=== PATIENT | male | born 1975 | race Caucasian/White ===

== ENCOUNTER → 2019-08-04 | Outpatient (CLI) | payer BC ==
--- NOTE | 2019-08-05 05:18 | CT ---
EXAMINATION TYPE: CT urogram wo/w con DATE OF EXAM: 08/04/2019 COMPARISON: None HISTORY: 43-year-old male Hematuria TECHNIQUE: Contiguous axial scanning of the abdomen and pelvis performed without and with IV Contrast , patient injected with 100 mL of Isovue 300. Delayed images through the kidneys and bladder were obt ained. Coronal/sagittal reconstructions performed. 3-D reconstructions generated on a dedicated [employer] workstation. CT DLP: 1878.8 mGycm Automated exposure control for dose reduction was used. FINDINGS: Heart normal size without pericardial effusion. Prominent dependent atelectasis posterior right base along with subsegmental bandlike atelectasis. No pleural effusion. Tiny calcified granuloma posterome dial right base. Small hiatal hernia. No focal liver lesion or biliary ductal dilatation. Portal venous system is patent. Gallbladder, adrenal glands, spleen, and pancreas appear within normal limits. Punctate 2 to 3 mm bilateral renal calculi are present, approximately 7 on the right and 2 on the lef t. No hydronephrosis. Symmetric uptake and excretion of contrast from both kidneys. Exophytic 1.8 cm hypodense lesion upper pole left kidney versus noncontrast density of 6 Hounsfield u nits and postcontrast density of 13 Hounsfield units which is within a standard deviation of variabil ity. A benign cyst is suggested. A second 1.8 cm cortical cyst shows fluid attenuation posterior mid to lower pole left kidney. Tiny subcentimeter hypodensity posterior lower pole right kidney too small fragment CT characterizati on, likely tiny cortical cyst. No suspicious enhancing renal lesions. No abnormal filling defects seen within the renal collecting systems. The entire ureters are seen opacified. No suspicious filling defect or contour abnormality is seen. T here is some minimal narrowing and tortuosity on the right at the level of the iliac vessel crossing. No dilated small bowel, free fluid, or free air. Some scattered prominent but nonenlarged periaortic lymph nodes. Mesenteric lymph node measures up to 6 mm, axial image 40, probably reactive/post inflam matory. Scattered mild stool. Mildly redundant proximal sigmoid colon. No pericolonic inflammatory change. No suspicious filling defect along the posterior opacified one third of the bladder wall. Prostate gland mildly enlarged at 4.6 cm wide. No abnormal fluid collection in the pelvis or pelvic l ymphadenopathy seen. Bones: Mild facet arthropathy and degenerative disc disease. There is diffuse disc bulge with superim posed right paracentral disc herniation at L3-L4 causing at least mild spinal canal stenosis and prob ably effacing the traversing right L4 nerve root. IMPRESSION: 1. BILATERAL PUNCTATE 2 TO 3 MM NEPHROLITHIASIS. NO HYDRONEPHROSIS. 2. NO SUSPICIOUS ENHANCING RENAL LESION. A FEW RENAL CORTICAL CYSTS ARE PRESENT MEASURING UP TO 1.8 C M. 3. NO SUSPICIOUS FILLING DEFECT ALONG THE URETERS OR COLLECTING SYSTEMS OR WITHIN THE POSTERIOR THIRD OPACIFIED BLADDER. SOME FOCAL TORTUOSITY AND NARROWING ALONG THE DISTAL THIRD RIGHT URETER CORRESPON DS TO THE CROSSING OVER THE ILIAC VESSELS. 4. MILD PROSTATOMEGALY (4.6 CM WIDE). 5. RIGHT PARACENTRAL DISC HERNIATION AT L3-L4 WITH AT LEAST MILD SPINAL CANAL STENOSIS AND POSSIBLE A BUTMENT OF THE TRAVERSING RIGHT L4 NERVE ROOT. QUERY ANY RADICULOPATHY.
== END | disposition home or self-care (01) ==
LOC: RADCTMAIN 16:50
PROVIDERS: ATTEND Urology
DX: N20.0 Calculus of kidney (principal); N28.1 Cyst of kidney, acquired; N13.8 Other obstructive and reflux uropathy; N28.9 Disorder of kidney and ureter, unspecified; N40.0 Benign prostatic hyperplasia without lower urinary tract symptoms
CPT/HCPCS: 74178; 74400; Q9967

== ENCOUNTER 2021-02-25 03:40 | Emergency (ER) | payer BC, OTHER ==
[2021-02-25 03:51] VITALS: RESP 18
--- NOTE | 2021-02-25 03:52 | ED ---
Syncope HPI - General Chief Complaint: Syncope Stated Complaint: Near syncope Time Seen by Provider: 02/25/21 03:42 Source: patient, family Mode of arrival: wheelchair Limitations: no limitations - Related Data Allergies Allergy/AdvReac Type Severity Reaction Status Date / Time No Known Allergies Allergy Verified 02/25/21 03:51 Review of Systems ROS Statement: Those systems with pertinent positive or pertinent negative responses have been documented in the HPI. ROS Other: All systems not noted in ROS Statement are negative. Past Medical History Past Medical History: Hypertension Additional Past Medical History / Comment(s): kidney stones, migraines History of Any Multi-Drug Resistant Organisms: None Reported Past Surgical History: No Surgical Hx Reported Past Psychological History: ADD/ADHD Smoking Status: Current every day smoker Past Alcohol Use History: Occasional Past Drug Use History: Marijuana General Exam Limitations: no limitations Course Vital Signs 02/25/21 02/25/21 03:44 05:45 Temperature 97.5 F L Pulse Rate 87 85 Respiratory 18 18 Rate Blood Pressure 118/76 123/77 O2 Sat by Pulse 99 98 Oximetry - Reevaluation(s) Reevaluation #1: 02/25/21 05:12 Medical record is reviewed. Reevaluation #2: 02/25/21 05:12 Patient has no chest pain with either for second or third EKG EKG Findings - EKG Comments: EKG Findings:: EKG shows sinus rhythm 88 IL 160 QRS 88 QTc 438. Repeat. EKG shows normal sinus rhythm 83 IL 164 QRS 86 QTc 434 does appear to be some early repolarization,. Repeat. EKG shows sinus rhythm 83 IL 168 QRS 88 QTc 446 Medical Decision Making - Lab Data Result diagrams: 02/25/21 04:21 02/25/21 04:21 Lab Results 02/25/21 02/25/21 02/25/21 Range/Units 04:21 04:21 04:21 WBC 15.5 H (3.8-10.6) k/uL RBC 5.32 (4.30-5.90) m/uL Hgb 15.7 (13.0-17.5) gm/dL Hct 46.3 (39.0-53.0) % MCV 87.1 (80.0-100.0) fL MCH 29.5 (25.0-35.0) pg MCHC 33.8 (31.0-37.0) g/dL RDW 13.0 (11.5-15.5) % Plt Count 205 (150-450) k/uL MPV 8.5 Neutrophils % 80 % Lymphocytes % 9 % Monocytes % 7 % Eosinophils % 1 % Basophils % 0 % Neutrophils # 12.4 H (1.3-7.7) k/uL Lymphocytes # 1.4 (1.0-4.8) k/uL Monocytes # 1.1 H (0-1.0) k/uL Eosinophils # 0.2 (0-0.7) k/uL Basophils # 0.1 (0-0.2) k/uL PT 10.5 (9.0-12.0) sec INR 1.0 (<1.2) APTT 22.8 (22.0-30.0) sec D-Dimer 0.80 H (<0.60) mg/L FEU Sodium 133 L (137-145) mmol/L Potassium 4.1 (3.5-5.1) mmol/L Chloride 103 (98-107) mmol/L Carbon Dioxide 21 L (22-30) mmol/L Anion Gap 9 mmol/L BUN 15 (9-20) mg/dL Creatinine 0.87 (0.66-1.25) mg/dL Est GFR (CKD-EPI)AfAm >90 (>60 ml/min/1.73 sqM) Est GFR (CKD-EPI)NonAf >90 (>60 ml/min/1.73 sqM) Glucose 117 H (74-99) mg/dL Calcium 9.2 (8.4-10.2) mg/dL Phosphorus 3.9 (2.5-4.5) mg/dL Magnesium 2.1 (1.6-2.3) mg/dL Total Bilirubin 0.6 (0.2-1.3) mg/dL AST 43 (17-59) U/L ALT 39 (4-49) U/L Alkaline Phosphatase 83 (38-126) U/L Creatine Kinase 934 H (55-170) U/L CK-MB (CK-2) (0.0-2.4) ng/mL Troponin I (0.000-0.034) ng/mL NT-Pro-B Natriuret Pep pg/mL Total Protein 6.9 (6.3-8.2) g/dL Albumin 4.2 (3.5-5.0) g/dL Lipase 77 (23-300) U/L Serum Alcohol <10 mg/dL 02/25/21 02/25/21 Range/Units 04:21 04:21 WBC (3.8-10.6) k/uL RBC (4.30-5.90) m/uL Hgb (13.0-17.5) gm/dL Hct (39.0-53.0) % MCV (80.0-100.0) fL MCH (25.0-35.0) pg MCHC (31.0-37.0) g/dL RDW (11.5-15.5) % Plt Count (150-450) k/uL MPV Neutrophils % % Lymphocytes % % Monocytes % % Eosinophils % % Basophils % % Neutrophils # (1.3-7.7) k/uL Lymphocytes # (1.0-4.8) k/uL Monocytes # (0-1.0) k/uL Eosinophils # (0-0.7) k/uL Basophils # (0-0.2) k/uL PT (9.0-12.0) sec INR (<1.2) APTT (22.0-30.0) sec D-Dimer (<0.60) mg/L FEU Sodium (137-145) mmol/L Potassium (3.5-5.1) mmol/L Chloride (98-107) mmol/L Carbon Dioxide (22-30) mmol/L Anion Gap mmol/L BUN (9-20) mg/dL Creatinine (0.66-1.25) mg/dL Est GFR (CKD-EPI)AfAm (>60 ml/min/1.73 sqM) Est GFR (CKD-EPI)NonAf (>60 ml/min/1.73 sqM) Glucose (74-99) mg/dL Calcium (8.4-10.2) mg/dL Phosphorus (2.5-4.5) mg/dL Magnesium (1.6-2.3) mg/dL Total Bilirubin (0.2-1.3) mg/dL AST (17-59) U/L ALT (4-49) U/L Alkaline Phosphatase (38-126) U/L Creatine Kinase (55-170) U/L CK-MB (CK-2) 3.7 H (0.0-2.4) ng/mL Troponin I <0.012 (0.000-0.034) ng/mL NT-Pro-B Natriuret Pep 48 pg/mL Total Protein (6.3-8.2) g/dL Albumin (3.5-5.0) g/dL Lipase (23-300) U/L Serum Alcohol mg/dL Disposition Clinical Impression: Syncope Disposition: HOME SELF-CARE Condition: Good Instructions (If sedation given, give patient instructions): Syncope (ED) Is patient prescribed a controlled substance at d/c from ED?: No Referrals: Deidre Kwong DO [Primary Care Provider] - 1-2 days
[2021-02-25] MEDS ORDERED: SODIUM CHLORIDE 0.9% 1,000 ML IV STA ×2 (04:03→05:14)
[2021-02-25 04:41] LABS: Basophils # (A) 0.1 k/uL (0-0.2); Basophils % (A) 0 %; Eosinophils # (A) 0.2 k/uL (0-0.7); Eosinophils % (A) 1 %; HCT 46.3 % (39.0-53.0); HGB 15.7 gm/dL (13.0-17.5); Lymphocytes # (A) 1.4 k/uL (1.0-4.8); Lymphocytes % (A) 9 %; MCH 29.5 pg (25.0-35.0); MCHC 33.8 g/dL (31.0-37.0); MCV 87.1 fL (80.0-100.0); Mean Platelet Volume 8.5; Monocytes # (A) 1.1 k/uL (0-1.0); Monocytes % (A) 7 %; Neutrophils # (A) 12.4 k/uL (1.3-7.7); Neutrophils % (A) 80 %; Platelet Count 205 k/uL (150-450); RBC 5.32 m/uL (4.30-5.90); WBC 15.5 k/uL (3.8-10.6)
[2021-02-25 04:44] LABS: ALT 39 U/L (4-49); AST 43 U/L (17-59); African American GFR (CKD) >90 (>60 ml/min/1.73 sqM); Albumin 4.2 g/dL (3.5-5.0); Alcohol <10 mg/dL; Alkaline Phosphatase 83 U/L (38-126); Anion Gap 9 mmol/L; Blood Urea Nitrogen 15 mg/dL (9-20); Calcium 9.2 mg/dL (8.4-10.2); Carbon Dioxide 21 mmol/L (22-30); Chloride 103 mmol/L (98-107); Creatine Kinase 934 U/L (55-170); Glucose 117 mg/dL (74-99); Lipase 77 U/L (23-300); Magnesium 2.1 mg/dL (1.6-2.3); Non-African American GFR(CKD) >90 (>60 ml/min/1.73 sqM); Phosphorus 3.9 mg/dL (2.5-4.5); Potassium 4.1 mmol/L (3.5-5.1); Sodium 133 mmol/L (137-145); Total Bilirubin 0.6 mg/dL (0.2-1.3); Total Protein 6.9 g/dL (6.3-8.2)
[2021-02-25 04:55] LABS: Creatine Kinase MB 3.7 ng/mL (0.0-2.4); Troponin I <0.012 ng/mL (0.000-0.034)
[2021-02-25] MEDS ORDERED: SODIUM CHLORIDE 0.9% 500 ML 500 ML IV STA (05:14)
[2021-02-25 05:38] LABS: Partial Thromboplastin Time 22.8 sec (22.0-30.0); Prothrombin Time 10.5 sec (9.0-12.0)
--- NOTE | 2021-02-25 05:49 | CT ---
EXAM: CT Abdomen and Pelvis With Intravenous Contrast CLINICAL HISTORY: pain. Additional history not provided. TECHNIQUE: Axial computed tomography images of the abdomen and pelvis with intravenous contrast. CTDI is 13.685 mGy and DLP is 831.45 mGy-cm. This CT exam was performed using one or more of the following dose reduction techniques: automated exposure control, adjustment of the mA and/or kV according to patient size, and/or use of iterative reconstruction technique. COMPARISON: 08/04/2019. FINDINGS: Lung bases: Unremarkable. No mass. No consolidation. ABDOMEN: Liver: Hepatomegaly again noted, measuring up to 20.1 cm in greatest craniocaudad dimension. Gallbladder and bile ducts: Unremarkable. No calcified stones. No ductal dilation. Pancreas: Unremarkable. No mass. No ductal dilation. Spleen: Unremarkable. No splenomegaly. Adrenals: Unremarkable. No mass. Kidneys and ureters: Areas of subtle hypoenhancement involving the upper poles of both kidneys may represent acute pyelonephritis in the correct clinical setting. Subcentimeter nonobstructive left nephrolithiasis, largest stone seen in the lower pole, measuring up to 0. 3 cm. A 2.1 cm cyst is seen in the midpole of the left kidney, as seen on prior study. A 2.3 cm cyst is seen arising from the upper pole of the left kidney, similar to prior study. A 0.8 cm cyst is seen in the lower pole of the right kidney, as seen on prior study. Stomach and bowel: Fluid is seen throughout the small bowel with distal wall thickening suggesting infectious versus inflammatory enteritis. Mild colonic diverticulosis. No obstruction. PELVIS: Appendix: No findings to suggest acute appendicitis. Bladder: Unremarkable. No mass. Reproductive: Prostate is at the upper limits of normal. ABDOMEN and PELVIS: Intraperitoneal space: Unremarkable. No free air. No significant fluid collection. Bones/joints: Unchanged. No acute fracture. No dislocation. Soft tissues: Tiny fat-containing right inguinal hernia. Vasculature: Unremarkable. No abdominal aortic aneurysm. Lymph nodes: Unremarkable. No enlarged lymph nodes. IMPRESSION: 1. Fluid throughout the small bowel with distal wall thickening suggesting infectious versus inflammatory enteritis. 2. Areas of subtle hypoenhancement involving the upper poles of both kidneys may represent acute pyelonephritis in the correct clinical setting. 3. Nonobstructive left nephrolithiasis. 4. Mild colonic diverticulosis.
[2021-02-25 06:01] LABS: D-Dimer 0.8 mg/L FEU (<0.60)
--- NOTE | 2021-02-25 06:04 | CT ---
EXAM: CT Angiography Chest With Intravenous Contrast CLINICAL HISTORY: pain. Additional history was not provided. TECHNIQUE: Axial computed tomographic angiography images of the chest with intravenous contrast. CTDI is 13.685 mGy and DLP is 831.45 mGy-cm. This CT exam was performed using one or more of the following dose reduction techniques: automated exposure control, adjustment of the mA and/or kV according to patient size, and/or use of iterative reconstruction technique. MIP reconstructed images were created and reviewed. COMPARISON: No relevant prior studies available. FINDINGS: Pulmonary arteries: Unremarkable. No pulmonary embolism. Aorta: No acute findings. No thoracic aortic aneurysm. Lungs: Mild bronchial wall thickening raising concern for infectious versus inflammatory airways disease. Likely dependent atelectatic changes involving both upper and lower lobes along with linear atelectasis involving the lingula. No mass. Pleural space: Unremarkable. No significant effusion. No pneumothorax. Heart: Unremarkable. No cardiomegaly. No significant pericardial effusion. No evidence of RV dysfunction. Mediastinum: Mildly prominent mediastinal and bilateral hilar lymph nodes, measuring up to 1 cm in short axis, likely reactive. Bones/joints: No acute fracture. No dislocation. Soft tissues: Unremarkable. Lymph nodes: See above. IMPRESSION: 1. No evidence of PE. 2. Mild bronchial wall thickening raising concern for infectious versus inflammatory airways disease.
[2021-02-25 06:42] VITALS: BP 122/80; PULSE 81; TEMP 98.1
== END 2021-02-25 06:42 | disposition home or self-care (01) ==
LOC: EC 03:40
DX: R55 Syncope and collapse (principal); I10 Essential (primary) hypertension; F17.200 Nicotine dependence, unspecified, uncomplicated; F12.90 Cannabis use, unspecified, uncomplicated
CPT/HCPCS: 36415; 71275; 74177; 80053; 80320; 82550; 82553; 83690; 83735; 83880; 84100; 84484; 85025; 85379; 85610; 85730; 93005; 96360; 96361; 99284

== ENCOUNTER 2021-11-26 09:14 | Emergency (ER) | payer OTHER ==
[2021-11-26 09:19] VITALS: PULSE 78; RESP 18; TEMP 96.8
[2021-11-26] MEDS ORDERED: ORPHENADRINE 30 MG/ML 2 ML VIAL IM STA (09:36)
[2021-11-26] MEDS ORDERED: HYDROmorphone 1 MG/ML 1 ML SYRINGE IM STA (09:36)
--- NOTE | 2021-11-26 09:49 | ED ---
Back Pain HPI - General Chief Complaint: Back Pain/Injury Stated Complaint: Back pain Time Seen by Provider: 11/26/21 09:20 Source: patient, RN notes reviewed Mode of arrival: ambulatory Limitations: no limitations - History of Present Illness Initial Comments: l 45-year-old male presents emergency Department with chief complaint of low back pain. Patient states that he may have injured his back while he was trying to his sliver out of his right heel. Patient states she's had some back issues in which she's been told his and multiple disc issues in the past. He denies any bowel bladder incontinence or retention or saddle anesthesias. He has some pain and rates on his right leg. Patient states it's painful to walk but has no associated weakness. Patient has no upper back pain no neck pain no other complaints. - Related Data Home Medications Medication Instructions Recorded Confirmed Cyclobenzaprine [Flexeril] 10 mg PO HS 11/26/21 11/26/21 Dextroamphetamine/Amphetamine 10 mg PO TID 11/26/21 11/26/21 [Adderall] Ibuprofen [Motrin] 800 mg PO Q8H 11/26/21 11/26/21 Losartan Potassium 100 mg PO DIRECTED 11/26/21 11/26/21 Pantoprazole [Protonix] 40 mg PO DAILY 11/26/21 11/26/21 Sildenafil Citrate [Sildenafil] 60 - 100 mg PO DAILY PRN 11/26/21 11/26/21 Previous Rx's Medication Instructions Recorded Ibuprofen [Motrin] 600 mg PO Q8HR PRN #20 tab 11/26/21 methocarbamoL [Robaxin] 500 mg PO TID PRN #15 tab 11/26/21 predniSONE 50 mg PO DAILY #5 tab 11/26/21 Allergies Allergy/AdvReac Type Severity Reaction Status Date / Time No Known Allergies Allergy Verified 11/26/21 10:07 Review of Systems ROS Statement: Those systems with pertinent positive or pertinent negative responses have been documented in the HPI. ROS Other: All systems not noted in ROS Statement are negative. Past Medical History Past Medical History: Hypertension Additional Past Medical History / Comment(s): kidney stones, migraines History of Any Multi-Drug Resistant Organisms: None Reported Past Surgical History: No Surgical Hx Reported Past Psychological History: ADD/ADHD Smoking Status: Current every day smoker Past Alcohol Use History: Occasional Past Drug Use History: Marijuana General Exam Limitations: no limitations General appearance: alert, in no apparent distress Head exam: Present: atraumatic, normocephalic, normal inspection Eye exam: Present: normal appearance, PERRL, EOMI. Absent: scleral icterus, conjunctival injection, periorbital swelling Respiratory exam: Present: normal lung sounds bilaterally. Absent: respiratory distress, wheezes, rales, rhonchi, stridor Cardiovascular Exam: Present: regular rate, normal rhythm, normal heart sounds. Absent: systolic murmur, diastolic murmur, rubs, gallop, clicks GI/Abdominal exam: Present: soft, normal bowel sounds. Absent: distended, tenderness, guarding, rebound, rigid Extremities exam: Present: normal inspection, full ROM, normal capillary refill, other (Lower extremity pulses equal bilaterally, equal: Equal warmth). Absent: tenderness, pedal edema, joint swelling, calf tenderness Back exam: Present: tenderness (Right lumbar), muscle spasm, paraspinal tenderness. Absent: full ROM (With range of motion), CVA tenderness (R), CVA tenderness (L), vertebral tenderness Neurological exam: Present: alert, oriented X3, CN II-XII intact, reflexes normal. Absent: motor sensory deficit Skin exam: Present: warm, dry, intact, normal color. Absent: rash Course Vital Signs 11/26/21 09:14 Temperature 96.8 F L Pulse Rate 78 Respiratory 18 Rate Blood Pressure 145/100 O2 Sat by Pulse 99 Oximetry Medical Decision Making - Medical Decision Making CT shows moderate to severe changes L3-L4 and L4- L5 disc bulging, herniation. Patient will follow-up with Dr. Gaines on-call orthospine. Patient has no red flag symptoms. We discussed strict return parameters. Disposition Clinical Impression: Lumbar disc disease with radiculopathy Disposition: HOME SELF-CARE Condition: Stable Instructions (If sedation given, give patient instructions): Acute Low Back Pain (ED) Additional Instructions: Please return to the Emergency Department if symptoms worsen or any other concerns. Prescriptions: Ibuprofen [Motrin] 600 mg PO Q8HR PRN #20 tab PRN Reason: Pain predniSONE 50 mg PO DAILY #5 tab methocarbamoL [Robaxin] 500 mg PO TID PRN #15 tab PRN Reason: muscle spasms Is patient prescribed a controlled substance at d/c from ED?: No Referrals: Deidre Kwong DO [Primary Care Provider] - 1-2 days Time of Disposition: 10:24
--- NOTE | 2021-11-26 10:06 | CT ---
EXAMINATION TYPE: CT lumbar spine wo con DATE OF EXAM: 11/26/2021 9:58 AM COMPARISON: HISTORY: Low back pain CT DLP: 1082.6 mGycm Automated exposure control for dose reduction was used. Unenhanced CT of the lumbar spine was performed. Bone and soft tissue window settings are submitted as well as coronal and sagittal reconstructions. L1-L2: Normal disc space height. No disc herniation protrusion or central stenosis. No facet joint arthropathy. No evidence for foraminal encroachment. L2-L3: Normal disc space height. No disc herniation protrusion or central stenosis. No facet joint arthropathy. No evidence for foraminal encroachment. L3-L4: Mild degenerative disc space narrowing. Broad-based subligamentous disc herniation posterocent ral into the right resulting in right lateral recess stenosis and right foraminal encroachment. Borde rline central stenosis. Facet joint arthropathy. L4-L5: Moderate degenerative disc space narrowing. Posterior disc bulge with partially encapsulating spur. Effacement ventral thecal sac with bilateral lateral recess stenosis. Borderline central stenos is. Bilateral foraminal encroachment. L5-S1: Normal disc space height. No disc herniation protrusion or central stenosis. No facet joint arthropathy. No evidence for foraminal encroachment. No evidence for fracture or malalignment. IMPRESSION: Degenerative disc disease as discussed above. Right paracentral subligamentous disc herniation. Right lateral recess stenosis at L3-4. And bilateral lateral recess stenosis at L4-5.
[2021-11-26] MEDS ORDERED: ACET/COD 300 MG/30 MG STARTER PACK 6 TAB BTL PO STA (10:21)
[2021-11-26 10:35] VITALS: BP 151/94
== END 2021-11-26 10:35 | disposition home or self-care (01) ==
LOC: EC 09:14
DX: M51.16 Intervertebral disc disorders with radiculopathy, lumbar region (principal); I10 Essential (primary) hypertension; F17.200 Nicotine dependence, unspecified, uncomplicated; F90.9 Attention-deficit hyperactivity disorder, unspecified type; Z79.899 Other long term (current) drug therapy
CPT/HCPCS: 72131; 99284; 96372; J2360; J1170